=== PATIENT | female | born 1985 | race Caucasian/White ===

== ENCOUNTER 2020-05-04 22:53 | Emergency (ER) | payer MEDICARE, OTHER ==
--- NOTE | 2020-05-04 23:21 | ED ---
Upper Extremity HPI - General Chief Complaint: Extremity Injury, Upper Stated Complaint: LT arm injury Time Seen by Provider: 05/04/20 23:09 Source: patient, RN notes reviewed Mode of arrival: ambulatory Limitations: no limitations - History of Present Illness Initial Comments: This a 35-year-old female presents emergency Department chief complaint left wrist pain. Patient states she tripped and fell earlier today. No head injury no loss conscious. Patient points she has pain on the distal portion of her arm. Patient denies any paresthesias of the usual. Patient states she is left- hand dominant. - Related Data Allergies Allergy/AdvReac Type Severity Reaction Status Date / Time aspirin Allergy Anaphylaxis Verified 05/04/20 22:58 cefaclor [From Ceclor] Allergy Rash/Hives Verified 05/04/20 22:58 cephalexin [From Keflex] Allergy Anaphylaxis Verified 05/04/20 22:58 infliximab [From Remicade] Allergy Anaphylaxis Verified 05/04/20 22:58 Review of Systems ROS Statement: Those systems with pertinent positive or pertinent negative responses have been documented in the HPI. ROS Other: All systems not noted in ROS Statement are negative. Past Medical History Past Medical History: Rheumatoid Arthritis (RA) History of Any Multi-Drug Resistant Organisms: None Reported Past Surgical History: Bariatric Surgery Past Psychological History: Anxiety, Depression Smoking Status: Current every day smoker Past Alcohol Use History: None Reported Past Drug Use History: Marijuana General Exam Limitations: no limitations General appearance: alert, in no apparent distress Head exam: Present: atraumatic, normocephalic, normal inspection Neck exam: Present: normal inspection. Absent: tenderness, meningismus, lymphadenopathy Respiratory exam: Present: normal lung sounds bilaterally. Absent: respiratory distress, wheezes, rales, rhonchi, stridor Cardiovascular Exam: Present: regular rate, normal rhythm, normal heart sounds. Absent: systolic murmur, diastolic murmur, rubs, gallop, clicks Extremities exam: Present: other (Left wrist there is tenderness medial and laterally, there is no snuffbox tenderness neurovascular intact no proximal forearm tenderness.) Course Vital Signs 05/04/20 22:55 Temperature 98.6 F Pulse Rate 86 Respiratory 20 Rate Blood Pressure 141/80 O2 Sat by Pulse 99 Oximetry Procedures - Orthopedic Splinting/Casting Injury #1 Side: left Upper Extremity Injury Location: short arm, wrist Upper Extremity Immobilizer: thumb spica, synthetic pre-padded splint Medical Decision Making - Medical Decision Making X-ray reveals possible fracture distal radius, concerning for also scaphoid injury. Patient was splinted and will follow-up with orthopedics. Disposition Clinical Impression: Distal radius fracture, left Narrative: Possible scaphoid fracture Disposition: HOME SELF-CARE Condition: Stable Instructions (If sedation given, give patient instructions): Wrist Injury (ED) Additional Instructions: Please follow-up with orthopedics as directed.Please return to the Emergency Department if symptoms worsen or any other concerns. Is patient prescribed a controlled substance at d/c from ED?: No Referrals: Maria Fernanda Queen DO [Primary Care Provider] - 1-2 days Jassi Maurice MD [STAFF PHYSICIAN] - 1-2 days Time of Disposition: 23:43
--- NOTE | 2020-05-04 23:56 | XR ---
EXAMINATION TYPE: XR forearm LT DATE OF EXAM: 05/04/2020 COMPARISON: NONE HISTORY: Fall. Pain. TECHNIQUE: 2 views FINDINGS: Radius and ulna appear intact. I see no fracture nor dislocation. Elbow joint and wrist minh nt appear intact. There is no sign of elbow joint effusion. IMPRESSION: Negative left forearm exam.
--- NOTE | 2020-05-04 23:57 | XR ---
EXAMINATION TYPE: XR wrist complete LT DATE OF EXAM: 05/04/2020 COMPARISON: NONE HISTORY: Fall. Pain. TECHNIQUE: 4 views FINDINGS: Carpal bones are intact. I see no fracture nor dislocation. Joint spaces are normal. IMPRESSION: Negative left wrist exam. No fracture seen.
[2020-05-05 00:11] VITALS: BP 136/78; PULSE 81; RESP 16; TEMP 98.2
== END 2020-05-05 00:09 | disposition home or self-care (01) ==
LOC: EC 22:53
DX: S52.502A Unspecified fracture of the lower end of left radius, initial encounter for closed fracture (principal); F17.200 Nicotine dependence, unspecified, uncomplicated; Z88.6 Allergy status to analgesic agent; Z88.1 Allergy status to other antibiotic agents; Z88.8 Allergy status to other drugs, medicaments and biological substances; W01.0XXA Fall on same level from slipping, tripping and stumbling without subsequent striking against object, initial encounter; Y92.009 Unspecified place in unspecified non-institutional (private) residence as the place of occurrence of the external cause
CPT/HCPCS: 29125; 99283